=== PATIENT | female | born 1985 | race Caucasian/White ===

== ENCOUNTER 2023-06-11 13:47 | Inpatient (IN) | payer SELFPAY ==
[2023-06-11 14:09] LABS: BASOPHILS ABSOLUTE AUTO 0.06 10^3/uL (0.00-0.50); BASOPHILS PERCENT AUTO 0.2 % (0-1); HEMATOCRIT 31.9 % (37.0-47.0); HEMOGLOBIN 10.4 g/dL (12.0-16.0); IMMATURE GRAN ABSOLUTE AUTO 0.07 10^3/uL (0.00-0.49); IMMATURE GRAN PERCENT AUTO 0.3 % (0.0-4.9); LYMPHOCYTES ABSOLUTE AUTO 1.62 10^3/uL (0.60-5.00); MEAN CORPUSCULAR HGB CONC 32.6 g/dL (32.0-36.0); MEAN CORPUSCULAR VOLUME 95.2 fL (83.0-97.0); MONOCYTES ABSOLUTE AUTO 2.38 10^3/uL (0.00-1.50); MONOCYTES PERCENT AUTO 8.8 % (0-10); NEUTROPHILS ABSOLUTE AUTO 22.83 x10^3/uL (1.80-8.00); NEUTROPHILS PERCENT AUTO 84.7 % (41-71); PLATELET COUNT,PLT 186 10^3/uL (150-400); RED BLOOD CELL COUNT 3.35 x10^6/uL (4.00-5.50)
[2023-06-11] MEDS ORDERED: Ondansetron 8 MG in Sodium Chloride 0.9% 100 ML IV ONE (14:18)
[2023-06-11 14:29] LABS: ALANINE AMINOTRANSFERASE,ALT 16 U/L (12-78); ALKALINE PHOSPHATASE 118 U/L (46-116); ASPARTATE AMNIOTRANSFERASE,AST 81 U/L (15-37); BILIRUBIN TOTAL 4.3 mg/dL (0.0-1.0); BLOOD UREA NITROGEN,BUN 10 mg/dL (7-18); C-REACTIVE PROTEIN 2.86 mg/dL (<=0.30); CALCIUM 8.5 mg/dL (8.4-10.1); CARBON DIOXIDE,CO2 21 mmol/L (21-32); CHLORIDE,CL 92 mEq/L (98-106); CREATININE 1.3 mg/dL (0.6-1.0); GLUCOSE RANDOM 105 mg/dL (75-99); LIPASE 40 U/L (16-77); PROTEIN TOTAL,TP 7.4 g/dL (6.4-8.2); SODIUM,NA 128 mEq/L (136-145)
[2023-06-11] MEDS ORDERED: Sodium Chloride 0.9% 1,000 ML IV ONE ×2 (14:30→17:04)
[2023-06-11 14:34] LABS: ESTIMATED GFR 55 mL/min (>=60); POTASSIUM,K 2.7 mEq/L (3.5-5.0)
[2023-06-11] MEDS ORDERED: Ondansetron 4 MG Tab.DIS PO PRN (15:29)
[2023-06-11] MEDS ORDERED: Ondansetron 4 MG/2 ML SDV IV PRN (15:29)
[2023-06-11] MEDS ORDERED: Temazepam 15 MG Cap PO PRN (15:29)
[2023-06-11] MEDS ORDERED: Magnesium Sulfate/Water 4 GM in Premix Bag 1 BAG IV ONE (15:29)
[2023-06-11] MEDS ORDERED: Iopamidol 755 Mg/ML 100 ML Bottle IVPUSH ONE (15:35)
[2023-06-11 16:04] LABS: INR 1.76 (0.92-1.18); PROTHROMBIN TIME 17.8 SEC (9.3-11.3); PTT,PARTIAL THROMBOPLSTIN TIME 29.2 SEC (20.0-30.0)
[2023-06-11 16:40] LABS: LACTIC ACID 7.9 mmol/L (0.4-2.0)
[2023-06-11] MEDS: cefTRIAXone 2 GM Vial IVPUSH SCH (18:09)
[2023-06-11] MEDS: metroNIDAZOLE/Normal Saline 500 MG in Premix Bag 1 BAG IV SCH (18:10)
[2023-06-11 18:21] LABS: APPEARANCE,URINE CLEAR (CLEAR); BILIRUBIN,URINE SMALL (NEGATIVE); COLOR,URINE AMBER (YELLOW); GLUCOSE,URINE NEGATIVE (NEGATIVE); KETONES,URINE NEGATIVE (NEGATIVE); LEUKOCYTE ESTERASE,URINE NEGATIVE (NEGATIVE); NITRITE,URINE NEGATIVE (NEGATIVE); OCCULT BLOOD,URINE NEGATIVE (NEGATIVE); PH,URINE 6.5 (4.5-8.0); PROTEIN,URINE NEGATIVE (NEGATIVE); UROBILINOGEN,URINE >=8.0 EU/dL (0.2-1.0)
[2023-06-11 18:26] LABS: BACTERIA,URINE NOT SEEN /HPF (NOT SEEN); EPITHELIAL CELLS,URINE OCCASIONAL /HPF (NOT SEEN); MUCUS,URINE OCCASIONAL /HPF (NOT SEEN); RBC,URINE NOT SEEN /HPF (0-5); WBC,URINE NOT SEEN /HPF (0-5)
[2023-06-11] MEDS: Folic Acid 1 MG, Multivitamins 1 TAB, Thiamine 100 MG, Magnesium Oxide 500 MG PO SCH ×4 (20:37)
[2023-06-11] MEDS: Potassium Chloride Riders 20 MEQ in Premix Bag 1 BAG IV SCH ×2 (20:38→23:06)
[2023-06-11] MEDS: Sodium Chloride 0.9% 1,000 ML IV SCH (21:03)
[2023-06-11] MEDS ORDERED: Lidocaine 1% 5 ML VIAL INJECT ONE (21:37)
[2023-06-11 22:04] LABS: LACTIC ACID 5.4 mmol/L (0.4-2.0)
[2023-06-12] MEDS: Potassium Chloride Riders 20 MEQ in Premix Bag 1 BAG IV SCH (01:18)
[2023-06-12] MEDS: metroNIDAZOLE/Normal Saline 500 MG in Premix Bag 1 BAG IV SCH ×3 (02:46→17:35)
[2023-06-12] MEDS: Sodium Chloride 0.9% 1,000 ML IV SCH ×3 (04:57→17:35)
[2023-06-12] MEDS: Folic Acid 1 MG, Multivitamins 1 TAB, Thiamine 100 MG, Magnesium Oxide 500 MG PO SCH ×4 (07:32)
[2023-06-12 07:33] LABS: BASOPHILS ABSOLUTE AUTO 0.04 10^3/uL (0.00-0.50); BASOPHILS PERCENT AUTO 0.2 % (0-1); EOSINOPHILS ABSOLUTE AUTO 0.09 10^3/uL (0.00-1.50); EOSINOPHILS PERCENT AUTO 0.5 % (0-6); HEMATOCRIT 26.9 % (37.0-47.0); HEMOGLOBIN 8.7 g/dL (12.0-16.0); IMMATURE GRAN ABSOLUTE AUTO 0.03 10^3/uL (0.00-0.49); IMMATURE GRAN PERCENT AUTO 0.2 % (0.0-4.9); LYMPHOCYTES ABSOLUTE AUTO 2.24 10^3/uL (0.60-5.00); LYMPHOCYTES PERCENT AUTO 12.3 % (24-44); MEAN CORPUSCULAR HEMOGLOBIN 31.2 pg (27.0-32.0); MEAN CORPUSCULAR HGB CONC 32.3 g/dL (32.0-36.0); MEAN CORPUSCULAR VOLUME 96.4 fL (83.0-97.0); MONOCYTES ABSOLUTE AUTO 1.63 10^3/uL (0.00-1.50); NEUTROPHILS ABSOLUTE AUTO 14.16 x10^3/uL (1.80-8.00); NEUTROPHILS PERCENT AUTO 77.8 % (41-71); PLATELET COUNT,PLT 188 10^3/uL (150-400); RED BLOOD CELL COUNT 2.79 x10^6/uL (4.00-5.50); WHITE BLOOD CELL COUNT,WBC 18.2 10^3/uL (4.0-11.0)
[2023-06-12 07:42] LABS: INR 1.76 (0.92-1.18); PROTHROMBIN TIME 17.8 SEC (9.3-11.3)
[2023-06-12 07:51] LABS: ALBUMIN 1.8 g/dL (3.4-5.0); BILIRUBIN TOTAL 2.8 mg/dL (0.0-1.0); C-REACTIVE PROTEIN 8.56 mg/dL (<=0.30); CREATININE 0.7 mg/dL (0.6-1.0); EST CRCL DRUG DOSING (CG) 99.98 mL/min; POTASSIUM,K 3.6 mEq/L (3.5-5.0); PROTEIN TOTAL,TP 6.6 g/dL (6.4-8.2)
[2023-06-12] MEDS: Potassium Chloride 20 MEQ Tab.ER PO SCH (11:24)
[2023-06-12] MEDS: cefTRIAXone 2 GM Vial IVPUSH SCH (17:36)
[2023-06-12 21:42] LABS: AMMONIA 60 umol/L (6-47)
[2023-06-13] MEDS: Sodium Chloride 0.9% 1,000 ML IV SCH (00:13)
[2023-06-13] MEDS: metroNIDAZOLE/Normal Saline 500 MG in Premix Bag 1 BAG IV SCH ×3 (02:24→17:56)
[2023-06-13] MEDS: Folic Acid 1 MG, Multivitamins 1 TAB, Thiamine 100 MG, Magnesium Oxide 500 MG PO SCH ×4 (07:56)
[2023-06-13] MEDS: Potassium Chloride 20 MEQ Tab.ER PO SCH (07:57)
[2023-06-13 08:23] LABS: ALBUMIN 1.7 g/dL (3.4-5.0); BILIRUBIN TOTAL 1.8 mg/dL (0.0-1.0); C-REACTIVE PROTEIN 5.88 mg/dL (<=0.30); CALCIUM 8.3 mg/dL (8.4-10.1); CREATININE 0.7 mg/dL (0.6-1.0); EST CRCL DRUG DOSING (CG) 99.98 mL/min; MAGNESIUM 1.8 mg/dL (1.8-2.4); POTASSIUM,K 4.1 mEq/L (3.5-5.0); PROTEIN TOTAL,TP 6.7 g/dL (6.4-8.2)
[2023-06-13 08:24] LABS: INR 1.69 (0.92-1.18); PROTHROMBIN TIME 17.1 SEC (9.3-11.3)
[2023-06-13 08:34] LABS: BASOPHILS ABSOLUTE AUTO 0.04 10^3/uL (0.00-0.50); BASOPHILS PERCENT AUTO 0.4 % (0-1); EOSINOPHILS ABSOLUTE AUTO 0.17 10^3/uL (0.00-1.50); EOSINOPHILS PERCENT AUTO 1.7 % (0-6); HEMATOCRIT 26.8 % (37.0-47.0); HEMOGLOBIN 8.3 g/dL (12.0-16.0); IMMATURE GRAN ABSOLUTE AUTO 0.02 10^3/uL (0.00-0.49); IMMATURE GRAN PERCENT AUTO 0.2 % (0.0-4.9); LYMPHOCYTES ABSOLUTE AUTO 2.85 10^3/uL (0.60-5.00); LYMPHOCYTES PERCENT AUTO 28.6 % (24-44); MEAN CORPUSCULAR HEMOGLOBIN 31.2 pg (27.0-32.0); MEAN CORPUSCULAR VOLUME 100.8 fL (83.0-97.0); NEUTROPHILS ABSOLUTE AUTO 5.78 x10^3/uL (1.80-8.00); NEUTROPHILS PERCENT AUTO 58.1 % (41-71); PLATELET COUNT,PLT 162 10^3/uL (150-400); RED BLOOD CELL COUNT 2.66 x10^6/uL (4.00-5.50)
[2023-06-13] MEDS ORDERED: Ibuprofen 200 MG Tab PO ONE (12:50)
[2023-06-13] MEDS: cefTRIAXone 2 GM Vial IVPUSH SCH (17:56)
[2023-06-14] MEDS: metroNIDAZOLE/Normal Saline 500 MG in Premix Bag 1 BAG IV SCH (01:31)
[2023-06-14] MEDS: Potassium Chloride 20 MEQ Tab.ER PO SCH (07:45)
[2023-06-14] MEDS: Folic Acid 1 MG, Multivitamins 1 TAB, Thiamine 100 MG, Magnesium Oxide 500 MG PO SCH ×4 (07:46)
[2023-06-14 08:08] LABS: BASOPHILS ABSOLUTE AUTO 0.04 10^3/uL (0.00-0.50); BASOPHILS PERCENT AUTO 0.5 % (0-1); EOSINOPHILS ABSOLUTE AUTO 0.21 10^3/uL (0.00-1.50); EOSINOPHILS PERCENT AUTO 2.4 % (0-6); HEMATOCRIT 27.4 % (37.0-47.0); HEMOGLOBIN 8.8 g/dL (12.0-16.0); IMMATURE GRAN ABSOLUTE AUTO 0.02 10^3/uL (0.00-0.49); IMMATURE GRAN PERCENT AUTO 0.2 % (0.0-4.9); LYMPHOCYTES ABSOLUTE AUTO 2.74 10^3/uL (0.60-5.00); LYMPHOCYTES PERCENT AUTO 31.3 % (24-44); MEAN CORPUSCULAR HEMOGLOBIN 31.7 pg (27.0-32.0); MEAN CORPUSCULAR HGB CONC 32.1 g/dL (32.0-36.0); MEAN CORPUSCULAR VOLUME 98.6 fL (83.0-97.0); MONOCYTES ABSOLUTE AUTO 0.82 10^3/uL (0.00-1.50); MONOCYTES PERCENT AUTO 9.4 % (0-10); NEUTROPHILS ABSOLUTE AUTO 4.93 x10^3/uL (1.80-8.00); NEUTROPHILS PERCENT AUTO 56.2 % (41-71); PLATELET COUNT,PLT 176 10^3/uL (150-400); RED BLOOD CELL COUNT 2.78 x10^6/uL (4.00-5.50); WHITE BLOOD CELL COUNT,WBC 8.8 10^3/uL (4.0-11.0)
[2023-06-14 08:20] LABS: ALBUMIN 1.9 g/dL (3.4-5.0); BILIRUBIN TOTAL 1.8 mg/dL (0.0-1.0); C-REACTIVE PROTEIN 3.55 mg/dL (<=0.50); CALCIUM 8.7 mg/dL (8.4-10.1); CREATININE 0.6 mg/dL (0.6-1.0); EST CRCL DRUG DOSING (CG) 116.64 mL/min; MAGNESIUM 1.7 mg/dL (1.8-2.4); POTASSIUM,K 4.9 mEq/L (3.5-5.0); PROTEIN TOTAL,TP 7.1 g/dL (6.4-8.2)
[2023-06-14 08:35] LABS: INR 1.53 (0.92-1.18); PROTHROMBIN TIME 15.6 SEC (9.3-11.3)
[2023-06-14] MEDS ORDERED: Ibuprofen 200 MG Tab PO ONE (08:39)
== END 2023-06-14 11:25 | disposition home or self-care (01) | DRG 433 ==
LOC: CC.ACU 13:47 → CC.FCMC 13:47 → CC.MS 14:57 → UNDOADMIN 14:57 → CC.MS 15:29
PROVIDERS: ADMIT Nurse Practitioner Family; ATTEND Nurse Practitioner Family
DX: K70.40 Alcoholic hepatic failure without coma (principal); E87.1 Hypo-osmolality and hyponatremia; E87.20 Acidosis, unspecified; R18.8 Other ascites; E86.0 Dehydration; E87.6 Hypokalemia; E83.42 Hypomagnesemia; K76.0 Fatty (change of) liver, not elsewhere classified; R16.0 Hepatomegaly, not elsewhere classified; F32.A Depression, unspecified; R16.1 Splenomegaly, not elsewhere classified; F10.20 Alcohol dependence, uncomplicated; Z87.891 Personal history of nicotine dependence; Z88.0 Allergy status to penicillin; Z11.52 Encounter for screening for COVID-19; Z79.899 Other long term (current) drug therapy
CPT/HCPCS: 36415; 70450; 71046; 74177; 80053; 80307; 81001; 82140; 82550; 83605; 83690; 83735; 84703; 85025; 85610; 85730; 86140; 86308; 87040; 87804; 93005; 97110-GP; 97161-GP; A9270-GY; J0696; J1836; J2405; J3475; J3480; J3490; J7030; Q9967; U0002

== ENCOUNTER 2023-06-21 17:06 | Emergency (ER) | payer SELFPAY ==
[2023-06-21] MEDS: Ondansetron 4 MG/2 ML SDV IVPUSH ONE ×2 (17:33→21:25)
[2023-06-21] MEDS: Ketorolac 30 MG/ML SDV IVPUSH ONE (17:33)
[2023-06-21] MEDS: Sodium Chloride 0.9% 1,000 ML IV ONE (17:34)
[2023-06-21 17:42] LABS: BASOPHILS ABSOLUTE AUTO 0.05 10^3/uL (0.00-0.50); BASOPHILS PERCENT AUTO 0.5 % (0-1); EOSINOPHILS ABSOLUTE AUTO 0.17 10^3/uL (0.00-1.50); EOSINOPHILS PERCENT AUTO 1.6 % (0-6); HEMATOCRIT 26.9 % (37.0-47.0); HEMOGLOBIN 8.5 g/dL (12.0-16.0); IMMATURE GRAN ABSOLUTE AUTO 0.01 10^3/uL (0.00-0.49); IMMATURE GRAN PERCENT AUTO 0.1 % (0.0-4.9); LYMPHOCYTES ABSOLUTE AUTO 2.86 10^3/uL (0.60-5.00); LYMPHOCYTES PERCENT AUTO 27.3 % (24-44); MEAN CORPUSCULAR HEMOGLOBIN 31.7 pg (27.0-32.0); MEAN CORPUSCULAR HGB CONC 31.6 g/dL (32.0-36.0); MEAN CORPUSCULAR VOLUME 100.4 fL (83.0-97.0); MONOCYTES ABSOLUTE AUTO 0.85 10^3/uL (0.00-1.50); MONOCYTES PERCENT AUTO 8.1 % (0-10); NEUTROPHILS ABSOLUTE AUTO 6.52 x10^3/uL (1.80-8.00); NEUTROPHILS PERCENT AUTO 62.4 % (41-71); PLATELET COUNT,PLT 236 10^3/uL (150-400); RED BLOOD CELL COUNT 2.68 x10^6/uL (4.00-5.50); WHITE BLOOD CELL COUNT,WBC 10.5 10^3/uL (4.0-11.0)
[2023-06-21 17:59] LABS: LACTIC ACID 1.6 mmol/L (0.4-2.0)
[2023-06-21 18:01] LABS: INR 1.53 (0.92-1.18); PROTHROMBIN TIME 15.6 SEC (9.3-11.3); PTT,PARTIAL THROMBOPLSTIN TIME 26.5 SEC (20.0-30.0)
[2023-06-21 18:03] LABS: ALANINE AMINOTRANSFERASE,ALT 19 U/L (12-78); ALBUMIN 1.8 g/dL (3.4-5.0); ALKALINE PHOSPHATASE 118 U/L (46-116); ASPARTATE AMNIOTRANSFERASE,AST 75 U/L (15-37); BILIRUBIN TOTAL 1.8 mg/dL (0.0-1.0); BLOOD UREA NITROGEN,BUN 10 mg/dL (7-18); CALCIUM 8.5 mg/dL (8.4-10.1); CARBON DIOXIDE,CO2 26 mmol/L (21-32); CHLORIDE,CL 103 mEq/L (98-106); CREATININE 0.7 mg/dL (0.6-1.0); GLUCOSE RANDOM 110 mg/dL (75-99); LIPASE 89 U/L (16-77); MAGNESIUM 1.7 mg/dL (1.8-2.4); POTASSIUM,K 3.9 mEq/L (3.5-5.0); PRO B-TYPE NATRIUR PEPT,BNPPRO 907 pg/mL (0-1000); SODIUM,NA 137 mEq/L (136-145)
[2023-06-21 18:04] LABS: ESTIMATED GFR 115 mL/min (>=60); ETHANOL BLOOD MEDICAL < 3 mg/dL (0-3)
[2023-06-21] MEDS: Iopamidol 755 Mg/ML 100 ML Bottle IVPUSH ONE (18:20)
[2023-06-21 18:23] LABS: APPEARANCE,URINE SLIGHTLY CLOUDY (CLEAR); BILIRUBIN,URINE NEGATIVE (NEGATIVE); COLOR,URINE AMBER (YELLOW); GLUCOSE,URINE NEGATIVE (NEGATIVE); KETONES,URINE NEGATIVE (NEGATIVE); LEUKOCYTE ESTERASE,URINE TRACE (NEGATIVE); NITRITE,URINE NEGATIVE (NEGATIVE); OCCULT BLOOD,URINE NEGATIVE (NEGATIVE); PROTEIN,URINE NEGATIVE (NEGATIVE)
[2023-06-21 18:28] LABS: AMPHETAMINES,URINE NEGATIVE (NEGATIVE); BACTERIA,URINE NOT SEEN /HPF (NOT SEEN); BARBITURATES,URINE NEGATIVE (NEGATIVE); BENZODIAZEPINE,URINE NEGATIVE (NEGATIVE); EPITHELIAL CELLS,URINE FEW /HPF (NOT SEEN); MDMA (ECSTASY), URINE NEGATIVE (NEGATIVE); METHADONE,URINE NEGATIVE (NEGATIVE); METHAMPHETAMINES,URINE NEGATIVE (NEGATIVE); MUCUS,URINE OCCASIONAL /HPF (NOT SEEN); OPIATES,URINE NEGATIVE (NEGATIVE); OXYCODONE,URINE NEGATIVE (NEGATIVE); PHENCYCLIDINE,URINE NEGATIVE (NEGATIVE); RBC,URINE NOT SEEN /HPF (0-5); TCA,URINE NEGATIVE (NEGATIVE); WBC,URINE 0-5 /HPF (0-5)
[2023-06-21] MEDS: Magnesium Sulfate/Water 4 GM in Premix Bag 1 BAG IV ONE (20:16)
[2023-06-21] MEDS: ceFAZolin 2 GM Vial IVPUSH ONE (21:20)
[2023-06-21] MEDS: Morphine 2 MG/ML SYRINGE IVPUSH ONE (21:20)
[2023-06-21] MEDS: Lidocaine 1% 30 ML SDV INJECT ONE (21:24)
== END 2023-06-21 20:26 ==
LOC: CC.ED 17:06
DX: R16.0 Hepatomegaly, not elsewhere classified (principal); R18.8 Other ascites; J45.909 Unspecified asthma, uncomplicated; Z79.899 Other long term (current) drug therapy; Z88.0 Allergy status to penicillin
CPT/HCPCS: 36415; 74177; 80053; 80305; 80307; 81001; 83605; 83690; 83735; 83880; 84484; 85025; 85610; 85730; 96374; 96375; 99285; J1885; J2405; J3475; J7030; Q9967; 99284

== ENCOUNTER 2023-08-11 21:05 | Emergency (ER) | payer SELFPAY ==
[2023-08-11 21:45] LABS: BASOPHILS ABSOLUTE AUTO 0.02 10^3/uL (0.00-0.50); BASOPHILS PERCENT AUTO 0.3 % (0-1); EOSINOPHILS ABSOLUTE AUTO 0.09 10^3/uL (0.00-1.50); EOSINOPHILS PERCENT AUTO 1.4 % (0-6); HEMOGLOBIN 8.5 g/dL (12.0-16.0); LYMPHOCYTES ABSOLUTE AUTO 2.45 10^3/uL (0.60-5.00); LYMPHOCYTES PERCENT AUTO 38.2 % (24-44); MEAN CORPUSCULAR HEMOGLOBIN 25.6 pg (27.0-32.0); MEAN CORPUSCULAR HGB CONC 30.4 g/dL (32.0-36.0); MEAN CORPUSCULAR VOLUME 84.3 fL (83.0-97.0); MONOCYTES PERCENT AUTO 9.4 % (0-10); NEUTROPHILS ABSOLUTE AUTO 3.25 x10^3/uL (1.80-8.00); NEUTROPHILS PERCENT AUTO 50.7 % (41-71); PLATELET COUNT,PLT 183 10^3/uL (150-400); RED BLOOD CELL COUNT 3.32 x10^6/uL (4.00-5.50); WHITE BLOOD CELL COUNT,WBC 6.4 10^3/uL (4.0-11.0)
[2023-08-11 21:49] LABS: APPEARANCE,URINE CLEAR (CLEAR); BILIRUBIN,URINE NEGATIVE (NEGATIVE); COLOR,URINE YELLOW (YELLOW); GLUCOSE,URINE NEGATIVE (NEGATIVE); KETONES,URINE NEGATIVE (NEGATIVE); LEUKOCYTE ESTERASE,URINE NEGATIVE (NEGATIVE); NITRITE,URINE NEGATIVE (NEGATIVE); OCCULT BLOOD,URINE TRACE-INTACT (NEGATIVE); PROTEIN,URINE NEGATIVE (NEGATIVE)
[2023-08-11 21:50] LABS: BACTERIA,URINE FEW /HPF (NOT SEEN); EPITHELIAL CELLS,URINE OCCASIONAL /HPF (NOT SEEN); MUCUS,URINE OCCASIONAL /HPF (NOT SEEN); RBC,URINE NOT SEEN /HPF (0-5); WBC,URINE NOT SEEN /HPF (0-5)
[2023-08-11 21:55] LABS: MONONUCLEOSIS SCREEN NEGATIVE
[2023-08-11 21:58] LABS: ALANINE AMINOTRANSFERASE,ALT 16 U/L (12-78); ALBUMIN 2.9 g/dL (3.4-5.0); ALKALINE PHOSPHATASE 95 U/L (46-116); ASPARTATE AMNIOTRANSFERASE,AST 36 U/L (15-37); BLOOD UREA NITROGEN,BUN 10 mg/dL (7-18); C-REACTIVE PROTEIN < 0.50 mg/dL (<=0.50); CALCIUM 8.9 mg/dL (8.4-10.1); CARBON DIOXIDE,CO2 27 mmol/L (21-32); CHLORIDE,CL 101 mEq/L (98-106); CREATININE 0.7 mg/dL (0.6-1.0); ESTIMATED GFR 114 mL/min (>=60); GLUCOSE RANDOM 96 mg/dL (75-99); LIPASE 94 U/L (16-77); MAGNESIUM 1.6 mg/dL (1.8-2.4); POTASSIUM,K 3.8 mEq/L (3.5-5.0); PROTEIN TOTAL,TP 8.1 g/dL (6.4-8.2); SODIUM,NA 137 mEq/L (136-145)
[2023-08-11 21:59] LABS: HCG QUALITATIVE,SERUM NEGATIVE (NEGATIVE)
[2023-08-11] MEDS: Iopamidol 755 Mg/ML 100 ML Bottle IVPUSH ONE (22:45)
[2023-08-11] MEDS: Sodium Chloride 0.9% 1,000 ML IV ONE (23:10)
[2023-08-12] MEDS: Take Home: Ondansetron 4 MG Tab.DIS, 2 Tab Pack PO ONE (00:07)
== END 2023-08-12 00:30 | disposition home or self-care (01) ==
LOC: CC.ED 21:05
DX: R16.2 Hepatomegaly with splenomegaly, not elsewhere classified (principal); R10.12 Left upper quadrant pain; R11.0 Nausea; Z79.899 Other long term (current) drug therapy; Z88.0 Allergy status to penicillin
CPT/HCPCS: 36415; 74177; 80053; 81001; 83690; 83735; 84703; 85025; 86140; 86308; 99284; A9270-GY; J7030; Q9967

== ENCOUNTER 2025-05-06 23:28 | Emergency (ER) | payer MEDICAID ==
[2025-05-06 23:48] VITALS: BP 128/83; PULSE 72
[2025-05-07] MEDS: Ketorolac 30 MG/ML SDV IM ONE (00:01)
[2025-05-07] MEDS: Take Home: Levofloxacin 500 MG Tab, 3 Tab Pack PO ONE (00:07)
[2025-05-07] MEDS: Take Home: metroNIDAZOLE 500 MG Tab, 6 Tab Pack PO ONE (00:07)
== END 2025-05-07 00:21 | disposition home or self-care (01) ==
LOC: CC.ED 23:28
DX: K04.7 Periapical abscess without sinus (principal); K02.9 Dental caries, unspecified; Z88.0 Allergy status to penicillin; Z79.899 Other long term (current) drug therapy
CPT/HCPCS: 96372; 99283; A9270-GY; J1885